=== PATIENT | male | born 1970 | race Caucasian/White ===

== ENCOUNTER 2023-11-09 23:56 | Emergency (ER) | payer BC, SELFPAY ==
[2023-11-09 23:56] VITALS: BMI 29.9
[2023-11-09 23:58] VITALS: BP 152/104
--- NOTE | 2023-11-10 00:51 | ED.GENMED ---
History of Present Illness
General
Chief Complaint: Abdominal Symptoms
Source: patient
Exam Limitations: none
Time Seen by Provider: 11/10/23 00:42
History of Present Illness
History of Present Illness:
This is a 53 year old male that comes in with c/o food poisoning. States that he eat at a restaurant in [place] and he thinks he had food poisoning. States that he had had food poisoning about 15 years ago. States that he started with vomiting for
the past few hours and abd cramping. Denies any diarrhea at this time. Denies any fever, chills, chest pain, SOB, diarrhea, headache, dizziness, urinary burning.
Past History
Past History
ED Past Medical History: Asthma, CAD, HTN, Hypercholesterolemia, [place], Psychiatric (Depression, ) and Other (HIV +, Cellulitis, PE/DVT, PNA, Hep B, Renal calculus, Ulcers)
ED Past Surgical History: Cardiac (Stents X 23 May 2016), Orthopedic (Right wrist surgery, Left foot surgery, Right below the knee amp, Left partial foot amp) and Other (Rhinoplasty )
Social History
Tobacco: Non-smoker
Alcohol: None
Drug: None
Personal:
Living: with family
Employment: Employed
Family History
Family History: Other (Noncontributory)
Review of Systems
Review of Systems
All Other Systems: ROS reviewed and negative except as documented in HPI and ROS
Constitutional: Reports no symptoms; Denies fever or chills
EENT: Reports no symptoms
Respiratory: Reports no symptoms; Denies cough or trouble breathing
Cardiac: Reports no symptoms; Denies chest pain
ABD/GI: Reports abdominal pain (Cramping), nausea and vomiting; Denies diarrhea
: Reports no symptoms; Denies dysuria, frequency or urgency
Musculoskeletal: Reports no symptoms
Skin: Reports no symptoms
Neurological: Reports no symptoms; Denies dizzy or headache
Psychiatric: Reports no symptoms
Phy Exam
General Physical Exam
General Presentation: no apparent distress
General age: appears stated age
General Skin: warm and dry
General Habitus: normal
General Mental: alert
General Hydration: appears well hydrated
ENT Exam
ENT Exam: TM's normal, pharynx normal and neck supple
Eye Exam
Eye Exam: EOMI
Cardiovascular Exam
Cardiovascular Exam: regular rate/rhythm, no edema, no murmur and normal peripheral pulses
Pulmonary Exam
Pulmonary Exam: lungs clear, no respiratory distress, no rales, chest non tender, no crackles, no rhonchi, no wheezing and no cough
Gastrointestinal Exam
Gastrointestinal Exam: normal bowel sounds, non tender, soft, no organomegaly, no pulsatile mass and non distended
Skin Exam
Skin Exam: normal color, warm/dry, no rash and no petechia
Psychiatric Exam
Psychiatric Exam: normal mood/affect
Course
Orders/Labs/Results
Orders:
Orders
11/10/23 00:51
0.9% Sodium Chloride 1000 ml [Nss] 1,000 ml IV BOLUS
Ondansetron Injectable [Zofran] 4 mg IV NOW STA
11/10/23 01:08
Complete Blood Count/With Diff Urgent
Comprehensive Metabolic Panel Urgent
11/10/23 02:09
Prochlorperazine [Compazine] 5 mg IV NOW STA
11/10/23 02:34
Prochlorperazine [Compazine] 5 mg IV NOW STA
Abnormal Lab Results
11/10/23
01:08
RBC 4.56 L 10^6/uL
(4.70-6.10)
Hgb 12.4 L g/dL
(13.0-18.0)
Hct 36.5 L %
(39.0-52.0)
RDW 15.6 H %
(11.5-14.5)
Eosinophils % 6.3 H %
(0-6)
Glucose 101 H mg/dl
(70-99)
11/10/23 01:08
11/10/23 01:08
Vital Signs
Initial and Last Documented VS:
Initial Vital Signs
Pulse Resp BP Pulse Ox
59 14 152/104 98
11/09/23 23:58 11/09/23 23:58 11/09/23 23:58 11/09/23 23:58
Last Documented Vital Signs
Pulse Resp BP Pulse Ox
59 14 128/76 95
11/09/23 23:58 11/09/23 23:58 11/10/23 01:14 11/10/23 01:45
MDM/Problems Addressed
Differential Diagnosis Includes:
Food poisoning. Nausea/vomiting
MDM/Problems Addressed:
This is a 53 year old male that comes in with c/o food poisoning. States that he started with vomiting a couple of hours ago. Denies any diarrhea.
Will give IV fluids and give Zofran
Back into see patient. Patient states that he just vomited again. Will further medicated and then recheck.
Patient continues to feel nauseated. Will repeat the Compazine and recheck pain. Abd assessed again and patient has not pain with palpation.
Back into see patient. States that he is feeling better. Has tolerated some oral fluids. Will sent prescription for Zofran to pharmacy. Patient to return with any concerns
Chronic conditions affecting care:
NA
Acute Exacerbation and/or Progression of Chronic Illness:
NA
*Pulse Oximetry
Patient hypoxic: no
*EKG
Interpreted by ED Provider?: NA
Rate: EKG- N/A
*Smelter Charger Interpretation
Rate: Smelter Charger- N/A
*Critical Care Note
Total Time (30-74mins, 75-104mins- exclusive of procedures): Not Applicable
ED Attending Note
-
Portions of this chart may have been created with voice recognition software.� Occasional wrong word or��sound alike� substitutions may have occurred due to the inherent limitations of voice recognition software.
Discharge Plan
Departure
Patient Disposition: Home (Routine Discharge)
Date of Disposition: 11/10/23
Time of Disposition: 03:00
Patient with high blood pressure during this ER visit?: No
Condition: Good
Covid-19: Not Applicable
Discharge Problem:
Nausea & vomiting
Instructions: Clear Liquid Diet, Nausea and Vomiting, Adult (DC)
Prescriptions:
New
ondansetron 4 mg tablet,disintegrating
4 mg PO Q8H PRN (Reason: nausea and vomiting) Qty: 7 0RF
No Action
atorvastatin 40 MG tablet
40 mg PO DAILY
albuterol sulfate [Proventil HFA] 90 MCG/PUFF HFA aerosol inhaler
1 puff inhalation PRN PRN (Reason: asthma)
Biktarvy 1 EACH tablet
1 ea PO DAILY
albuterol sulfate 2.5 MG/3 ML solution for nebulization
2.5 mg inhalation R Q4HPRN PRN (Reason: shortness of breath) 15 Days Qty: 30 0RF
amlodipine 2.5 MG tablet
2.5 mg PO DAILY Qty: 30 0RF
naloxone [Narcan] 4 mg/actuation spray,non-aerosol
4 mg intranasal Q2M PRN (Reason: opioid overdose) Qty: 2 0RF
warfarin 10 mg Tablet
10 mg PO DAILY
amoxicillin-pot clavulanate 875-125 mg tablet
1 tab PO BID Qty: 14 0RF
Referrals:
Keven Puente MD [Family Provider] - Call in 1-3 days for appt
Activity Restrictions/Additional Instructions:
As discussed, your blood work is normal. You have had a prescription for Zofran sent to your Pharmacy to help with the nausea/vomiting. . Please increase your water intake to 8-8oz glasses daily. Stay on a liquid diet tomorrow and advance your diet
as tolerated. Follow up with the family doctor for recheck. IF YOU HAVE VOMITING THAT HIS NOT CONTROLLED, ABD PAIN, OR YOU HAVE ANY OTHER CONCERNS PLEASE RETURN TO THE EMERGENCY ROOM.
Interventions
Interventions:
*Risk Screen - Suicide Last Done: 11/09/23 23:58
*General Assessment Last Done: 11/09/23 23:58
*Neglect/Abuse Screening Last Done: 11/09/23 23:58
CY-Wmmtry-Mynsyspjse Assessment Last Done: 11/10/23 01:17
Discharge Date and Time
Print Language: [place]
[2023-11-10] MEDS: ZOFRAN 4 MG IV (01:09)
[2023-11-10] MEDS: NSS 1000 IV (01:09)
[2023-11-10 01:14] VITALS: BP 128/76
[2023-11-10 01:18] LABS: % Basophils 0.5 % (0-2); % Eosinophils 6.3 % (0-6); % Immature Granulocytes 0.3 % (0-0.5); % Lymphocytes 34.6 % (20.5-51.1); % Monocytes 7.9 % (1.7-9.3); % Neutrophils 50.4 % (42.2-75.2); Absolute Eosinophils 0.4 10^3/uL (0-0.7); Absolute Monocytes 0.5 10^3/uL (0.1-0.6); Absolute Neutrophils 2.9 10^3/uL (1.4-6.5); Hematocrit 36.5 % (39.0-52.0); Hemoglobin 12.4 g/dL (13.0-18.0); Mean Corpuscular Hgb 27.2 pg (27.0-31.0); Mean Platelet Volume 9.8 fL (7.4-10.4); Nucleated Red Blood Cells % 0 % (-); Platelet Count 165 10^3/uL (130-400); Red Blood Cell Count 4.56 10^6/uL (4.70-6.10); Red Cell Dist. Width 15.6 % (11.5-14.5); White Blood Cell Count 5.7 10^3/uL (4.8-10.8)
[2023-11-10 01:44] LABS: ALT (SGPT) 27 U/L (0-50); AST (SGOT) 31 U/L (17-59); Albumin 4.3 g/dl (3.5-5.0); Alkaline Phosphatase 57 U/L (38-126); Blood Urea Nitrogen 18 mg/dl (9-20); Calcium 9.2 mg/dl (8.4-10.2); Carbon Dioxide 27 mmol/L (22-30); Chloride 107 mmol/L (98-107); Estimated Creatinine Clearance 108 ml/min; Glucose 101 mg/dl (70-99); Potassium 4.3 mmol/L (3.5-5.1); Sodium 142 mmol/L (135-145); Total Bilirubin 0.4 mg/dl (0.2-1.3); Total Protein 7.2 g/dl (6.3-8.2); eGFR > 60.00
[2023-11-10 02:00] VITALS: BP 131/73
[2023-11-10] MEDS: COMPAZINE 5 MG IV ×2 (02:17→02:42)
[2023-11-10 03:00] VITALS: BP 122/96
== END 2023-11-10 04:31 | disposition home or self-care (01) ==
LOC: EMR 23:56
PROVIDERS: Clinical Nurse Specialist Family Health; EMERGENCY PHYSICIAN Emergency Medicine; FAMILY PHYSICIAN Family Medicine
DX: R11.2 Nausea with vomiting, unspecified (principal); J45.909 Unspecified asthma, uncomplicated; I25.10 Atherosclerotic heart disease of native coronary artery without angina pectoris; I10 Essential (primary) hypertension; E78.00 Pure hypercholesterolemia, unspecified; I25.2 Old myocardial infarction; F32.A Depression, unspecified; Z86.19 Personal history of other infectious and parasitic diseases; Z21 Asymptomatic human immunodeficiency virus [HIV] infection status; Z86.718 Personal history of other venous thrombosis and embolism; Z87.442 Personal history of urinary calculi; Z95.5 Presence of coronary angioplasty implant and graft
CPT/HCPCS: 99283; 96374; 96375; 96376; 96361; 80053; 85025

== ENCOUNTER 2023-12-22 23:33 | Emergency (ER) | payer BC, SELFPAY ==
[2023-12-22 23:36] VITALS: BP 141/87
[2023-12-23] MEDS: TYLENOL 1000 MG PO (00:40)
[2023-12-23] MEDS: VIBRAMYCIN 100 MG PO (00:40)
--- NOTE | 2023-12-23 00:49 | ED.GENMED ---
History of Present Illness
General
Chief Complaint: Swelling
Source: patient
Exam Limitations: none
Time Seen by Provider: 12/23/23 00:16
Nursing documentation reviewed up to this point in time: agreed with
History of Present Illness
History of Present Illness:
53-year-old male with past medical history of PE currently on Coumadin also with history of HIV currently on Biktarvy aims that this is well-controlled at this point, CAD presenting to the emergency department today with concerns of swollen glands
and inflammation to the left armpit region over the past 2 days denies fevers or systemic symptoms.
Past History
Past History
ED Past Medical History: Asthma, CAD, HTN, Hypercholesterolemia, [place], Psychiatric (Depression, ) and Other (HIV +, Cellulitis, PE/DVT, PNA, Hep B, Renal calculus, Ulcers)
ED Past Surgical History: Cardiac (Stents X 23 May 2016), Orthopedic (Right wrist surgery, Left foot surgery, Right below the knee amp, Left partial foot amp) and Other (Rhinoplasty )
Social History
Tobacco: Non-smoker
Alcohol: None
Drug: None
Personal:
Living: with family
Employment: Employed
Family History
Family History: Other (Noncontributory)
Review of Systems
Review of Systems
Allergies reviewed?: Yes
All Other Systems: ROS reviewed and negative except as documented in HPI and ROS
Phy Exam
Physical Exam
Physical Exam:
GENERAL: Alert , in no apparent distress
EYE: pupils equal and reactive
NECK: Supple, no significant adenopathy.
ENT: o/p clr, mmm.
CARDIAC: Regular rate and rhythm .
LUNGS: Clear breath sounds bilaterally, no acute respiratory distress, no wheezes/rales/rhonchi
ABDOMEN: Soft, without focal tenderness, no r/g, no cvat
NEUROLOGICAL: Alert and oriented, no focal neuro deficits
SKIN: Left axilla region with area of redness and irritation appears mostly superficial some underlying swollen lymph nodes no deeper redness no fluctuance or induration warm and dry, skin intact.
MUSCULOSKELETAL: No edema, well perfused.
PSYCH: Normal and appropriate interaction.
Scores
Heart Failure Risk
Heart Failure Risk Score: Not Applicable
Course
Orders/Labs/Results
Orders:
Orders
12/23/23 00:32
Doxycycline [Vibramycin] 100 mg PO NOW STA
12/23/23 00:35
Acetaminophen [Tylenol] 1,000 mg PO NOW STA
12/23/23 00:43
PT/INR [Prothrombin Time] Urgent
Abnormal Lab Results
12/23/23
00:43
PT 32.0 H Sec
(11.4-14.6)
Vital Signs
Initial and Last Documented VS:
Initial Vital Signs
Pulse Resp BP Pulse Ox
62 20 141/87 99
12/22/23 23:36 12/22/23 23:36 12/22/23 23:36 12/22/23 23:36
Last Documented Vital Signs
Temp Pulse Resp BP Pulse Ox
98.4 F 62 20 141/87 99
12/23/23 01:00 12/22/23 23:36 12/22/23 23:36 12/22/23 23:36 12/22/23 23:36
MDM/Problems Addressed
MDM/Problems Addressed:
53-year-old male presenting to the emergency department today with concerns of UTI armpit. There is small superficial areas that look potential folliculitis with underlying swollen lymph nodes but no evidence of acute abscess. With antibiotic for
possibility of infection especially considering history of HIV that we claims this is very well-controlled. Patient stable throughout ER stay INR in therapeutic range. return precautions given.
*Critical Care Note
Total Time (30-74mins, 75-104mins- exclusive of procedures): Not Applicable
ED Attending Note
-
Portions of this chart may have been created with voice recognition software.� Occasional wrong word or��sound alike� substitutions may have occurred due to the inherent limitations of voice recognition software.
Discharge Plan
Departure
Patient Disposition: Home (Routine Discharge)
Date of Disposition: 12/23/23
Time of Disposition: 01:51
Patient with high blood pressure during this ER visit?: No
Condition: Good
Covid-19: Not Applicable
Discharge Problem:
Bacterial skin infection
Instructions: Cellulitis (Skin Infection), Adult ED
Prescriptions:
New
doxycycline hyclate 100 mg capsule
100 mg PO BID 7 Days Qty: 14 0RF
No Action
atorvastatin 40 MG tablet
40 mg PO DAILY
albuterol sulfate [Proventil HFA] 90 MCG/PUFF HFA aerosol inhaler
1 puff inhalation PRN PRN (Reason: asthma)
Biktarvy 1 EACH tablet
1 ea PO DAILY
albuterol sulfate 2.5 MG/3 ML solution for nebulization
2.5 mg inhalation R Q4HPRN PRN (Reason: shortness of breath) 15 Days Qty: 30 0RF
amlodipine 2.5 MG tablet
2.5 mg PO DAILY Qty: 30 0RF
naloxone [Narcan] 4 mg/actuation spray,non-aerosol
4 mg intranasal Q2M PRN (Reason: opioid overdose) Qty: 2 0RF
warfarin 10 mg Tablet
10 mg PO DAILY
amoxicillin-pot clavulanate 875-125 mg tablet
1 tab PO BID Qty: 14 0RF
ondansetron 4 mg tablet,disintegrating
4 mg PO Q8H PRN (Reason: nausea and vomiting) Qty: 7 0RF
Referrals:
Keven Puente MD [Family Provider] -
Activity Restrictions/Additional Instructions:
You came to the emergency department today with concerns of potential infection to your left armpit region. Please take doxycycline twice daily for the next 7 days and follow-up closely with your primary care doctor within the next week for
reassessment to ensure this is improving properly. Return to the emergency department for any worsening, new or concerning symptoms.
Interventions
Interventions:
*Risk Screen - Suicide Last Done: 12/22/23 23:36
*General Assessment Last Done: 12/22/23 23:36
*Neglect/Abuse Screening Last Done: 12/22/23 23:36
ED- Fall Risk Assessment Last Done: 12/22/23 23:36
*ED COVID-19 Vaccine History Last Done: 12/22/23 23:36
ED- Cardiac Assessment Last Done: 12/23/23 01:00
ED- Pulmonary Assessment Last Done: 12/23/23 01:00
ED-Skin Assessment Last Done: 12/23/23 01:00
Discharge Date and Time
Print Language: FRENCH
[2023-12-23 01:00] LABS: INR 3.12
[2023-12-23 01:59] VITALS: BP 135/79
== END 2023-12-23 02:03 | disposition home or self-care (01) ==
LOC: EMR 23:33
PROVIDERS: Physician Assistant; EMERGENCY PHYSICIAN Emergency Medicine; FAMILY PHYSICIAN Family Medicine
DX: L08.9 Local infection of the skin and subcutaneous tissue, unspecified (principal); B96.89 Other specified bacterial agents as the cause of diseases classified elsewhere; J45.909 Unspecified asthma, uncomplicated; I25.10 Atherosclerotic heart disease of native coronary artery without angina pectoris; I10 Essential (primary) hypertension; E78.00 Pure hypercholesterolemia, unspecified; Z21 Asymptomatic human immunodeficiency virus [HIV] infection status; Z86.711 Personal history of pulmonary embolism; Z86.718 Personal history of other venous thrombosis and embolism; Z87.442 Personal history of urinary calculi; Z95.5 Presence of coronary angioplasty implant and graft; Z79.01 Long term (current) use of anticoagulants
CPT/HCPCS: 99282; 85610

== ENCOUNTER 2024-02-01 14:39 | Emergency (ER) | payer BC, SELFPAY ==
[2024-02-01 14:45] VITALS: BP 163/89
--- NOTE | 2024-02-01 16:23 | ED.GENMED ---
History of Present Illness
General
Chief Complaint: Skin Problem
Source: patient
Time Seen by Provider: 02/01/24 16:09
History of Present Illness
History of Present Illness:
53yoM with a history of HIV and peripheral artery disease on Coumadin presenting for evaluation of a rash. Patient was seen in the ED on 12/23/2023 for a left axillary rash. He was discharged on doxycycline at that time. The rash resolved for a few
days but then recurred. He reports a migratory rash over the past several weeks. The rash is raised, red, and itchy. The rash is present in the groin, lower back, and axillary regions at times. He reports temporary improvement with Benadryl. He also
reports feeling under the weather the past few days with malaise and fatigue. No fevers. He denies any new medications or products. No exposure to similar rash. No groin or mucous membrane involvement. He reports that his HIV is well controlled.
Last viral load was reportedly low and his CD4 count was in the 400s a few months ago.
Past History
Past History
ED Past Medical History: Asthma, CAD, HTN, Hypercholesterolemia, [place], Psychiatric (Depression, ) and Other (HIV +, Cellulitis, PE/DVT, PNA, Hep B, Renal calculus, Ulcers)
ED Past Surgical History: Cardiac (Stents X 23 May 2016), Orthopedic (Right wrist surgery, Left foot surgery, Right below the knee amp, Left partial foot amp) and Other (Rhinoplasty )
Social History
Tobacco: Non-smoker
Alcohol: None
Drug: None
Personal:
Living: with family
Employment: Employed
Family History
Family History: Other (Noncontributory)
Phy Exam
General Physical Exam
General Presentation: well appearing and no apparent distress
General age: appears stated age
General Skin: warm and dry
General Habitus: normal
General Mental: alert
ENT Exam
ENT Exam: pharynx normal
Cardiovascular Exam
Cardiovascular Exam: regular rate/rhythm
Pulmonary Exam
Pulmonary Exam: lungs clear, no respiratory distress, no crackles and no wheezing
Venkata Coma Scale
Eye Opening: Spontaneous
Verbal Response: Oriented
Motor Response: Obeys Commands
GCS Total Score: 15
Skin Exam
Skin Exam: warm/dry and other (Scattered red raised circumscribed rash to the L inner thigh that appears to be fading. Blanchable. No sloughing or signs of infection. )
Psychiatric Exam
Psychiatric Exam: normal mood/affect
Course
Orders/Labs/Results
Orders:
Orders
02/01/24 16:55
COVID-19 Antigen Urgent
Source: Nasal Swab
Complete Blood Count/With Diff Urgent
Comprehensive Metabolic Panel Urgent
Prothrombin Time Urgent
Influenza A+B Rapid Molecular Urgent
PATRIC Source: Nasal Swab
Specimen Description:
02/01/24 17:57
Prednisone [Deltasone] 40 mg PO NOW STA
Abnormal Lab Results
02/01/24
16:55
WBC 4.2 L 10^3/uL
(4.8-10.8)
RBC 4.68 L 10^6/uL
(4.70-6.10)
RDW 14.6 H %
(11.5-14.5)
Absolute Lymphs (auto) 1.1 L 10^3/uL
(1.2-3.4)
PT 17.9 H Sec
(11.4-14.6)
Glucose 102 H mg/dl
(70-99)
02/01/24 16:55
02/01/24 16:55
Vital Signs
Initial and Last Documented VS:
Initial Vital Signs
Temp Pulse Resp BP Pulse Ox
98.3 F 98 20 163/89 98
02/01/24 14:45 02/01/24 14:45 02/01/24 14:45 02/01/24 14:45 02/01/24 14:45
Last Documented Vital Signs
Temp Pulse Resp BP Pulse Ox
98.3 F 79 18 111/61 96
02/01/24 14:45 02/01/24 18:53 02/01/24 18:53 02/01/24 17:53 02/01/24 18:53
MDM/Problems Addressed
Differential Diagnosis Includes:
53yoM here with a migratory itchy red rash x several weeks. Rash currently present to the L inner thigh. Improves with Benadryl. Hx of well controlled HIV. Patient is afebrile and hemodynamically stable. He is well-appearing in no acute distress.
There is a raised erythematous rash to the left inner thigh on exam which appears consistent with urticaria. No evidence of infection on exam. No mucous membrane involvement. Unclear trigger of urticaria. He denies any new products. Consider viral
illness given symptom of malaise.
Initial ED plan: Check CBC, CMP, INR, and COVID/flu swab.
*Critical Care Note
Total Time (30-74mins, 75-104mins- exclusive of procedures): Not Applicable
Update Note
Update Note:
INR subtherapeutic at 1.5. Patient notified of this and was advised to call his Coumadin clinic for instructions. Remainder of labs unremarkable. COVID/flu swab is negative. No indication for hospitalization. He was started on a course of
prednisone. He has a questionable allergy to prednisone in which he developed a rash 10 years ago after taking prednisone for a sore throat. First dose given in ED and he was monitored for 30-40 minutes without any adverse reactions. Advised f/u
with PCP and dermatology. ED return precautions discussed. He was discharged in stable condition.
ED Attending Note
-
Portions of this chart may have been created with voice recognition software.� Occasional wrong word or��sound alike� substitutions may have occurred due to the inherent limitations of voice recognition software.
Discharge Plan
Departure
Patient Disposition: Home (Routine Discharge)
Date of Disposition: 02/01/24
Time of Disposition: 17:52
Patient with high blood pressure during this ER visit?: Yes
Discharge Problem:
Urticaria
Instructions: Hives
Prescriptions:
New
prednisone 20 mg tablet
40 mg PO DAILY 4 Days Qty: 8 0RF
No Action
atorvastatin 40 MG tablet
40 mg PO DAILY
albuterol sulfate [Proventil HFA] 90 MCG/PUFF HFA aerosol inhaler
1 puff inhalation PRN PRN (Reason: asthma)
Biktarvy 1 EACH tablet
1 ea PO DAILY
albuterol sulfate 2.5 MG/3 ML solution for nebulization
2.5 mg inhalation R Q4HPRN PRN (Reason: shortness of breath) 15 Days Qty: 30 0RF
amlodipine 2.5 MG tablet
2.5 mg PO DAILY Qty: 30 0RF
naloxone [Narcan] 4 mg/actuation spray,non-aerosol
4 mg intranasal Q2M PRN (Reason: opioid overdose) Qty: 2 0RF
warfarin 10 mg Tablet
10 mg PO DAILY
amoxicillin-pot clavulanate 875-125 mg tablet
1 tab PO BID Qty: 14 0RF
ondansetron 4 mg tablet,disintegrating
4 mg PO Q8H PRN (Reason: nausea and vomiting) Qty: 7 0RF
doxycycline hyclate 100 mg capsule
100 mg PO BID 7 Days Qty: 14 0RF
Referrals:
Keven Puente MD [Family Provider] -
Chandrika Lo DO [Active] -
Activity Restrictions/Additional Instructions:
Take prednisone as prescribed. Take Benadryl 25mg every 6 hours as needed.
Please follow-up with your family doctor and dermatology. Return to the ER with any worsening symptoms.
Interventions
Interventions:
*Risk Screen - Suicide Last Done: 02/01/24 14:45
*General Assessment Last Done: 02/01/24 14:45
ED- Fall Risk Assessment Last Done: 02/01/24 17:37
*Nursing Disposition Last Done: 02/01/24 18:53
ED-Skin Assessment Last Done: 02/01/24 18:18
Discharge Date and Time
Discharge Date/Time: 02/01/24 18:54
Print Language: CHINESE
[2024-02-01 17:03] LABS: % Basophils 0.5 % (0-2); % Eosinophils 3.1 % (0-6); % Immature Granulocytes 0.2 % (0-0.5); % Lymphocytes 26.8 % (20.5-51.1); % Monocytes 7.4 % (1.7-9.3); Absolute Eosinophils 0.1 10^3/uL (0-0.7); Absolute Lymphocytes 1.1 10^3/uL (1.2-3.4); Absolute Monocytes 0.3 10^3/uL (0.1-0.6); Absolute Neutrophils 2.6 10^3/uL (1.4-6.5); Hematocrit 39.8 % (39.0-52.0); Hemoglobin 13.5 g/dL (13.0-18.0); Mean Corp Hgb Conc. 33.9 g/dL (33.0-37.0); Mean Corpuscular Hgb 28.8 pg (27.0-31.0); Mean Platelet Volume 9.3 fL (7.4-10.4); Nucleated Red Blood Cells % 0 % (-); Platelet Count 181 10^3/uL (130-400); Red Blood Cell Count 4.68 10^6/uL (4.70-6.10); Red Cell Dist. Width 14.6 % (11.5-14.5); White Blood Cell Count 4.2 10^3/uL (4.8-10.8)
[2024-02-01 17:13] LABS: INR 1.49; PT 17.9 Sec (11.4-14.6)
[2024-02-01 17:22] LABS: ALT (SGPT) 30 U/L (0-50); AST (SGOT) 35 U/L (17-59); Alkaline Phosphatase 56 U/L (38-126); Blood Urea Nitrogen 13 mg/dl (9-20); Carbon Dioxide 27 mmol/L (22-30); Chloride 101 mmol/L (98-107); Glucose 102 mg/dl (70-99); Sodium 139 mmol/L (135-145); Total Bilirubin 0.3 mg/dl (0.2-1.3); Total Protein 6.6 g/dl (6.3-8.2); eGFR > 60.00
[2024-02-01 17:35] LABS: COVID-19 Antigen Negative (Negative)
[2024-02-01 17:53] VITALS: BP 111/61
[2024-02-01] MEDS: DELTASONE 40 MG PO (18:03)
== END 2024-02-01 18:54 | disposition home or self-care (01) ==
LOC: EMR 14:39
PROVIDERS: Physician Assistant; EMERGENCY PHYSICIAN Emergency Medicine; FAMILY PHYSICIAN Family Medicine
DX: L50.9 Urticaria, unspecified (principal); E78.00 Pure hypercholesterolemia, unspecified; I10 Essential (primary) hypertension; I25.10 Atherosclerotic heart disease of native coronary artery without angina pectoris; I73.9 Peripheral vascular disease, unspecified; J45.909 Unspecified asthma, uncomplicated; Z21 Asymptomatic human immunodeficiency virus [HIV] infection status; Z79.01 Long term (current) use of anticoagulants; Z86.718 Personal history of other venous thrombosis and embolism; Z87.442 Personal history of urinary calculi; Z95.5 Presence of coronary angioplasty implant and graft; Z98.890 Other specified postprocedural states
CPT/HCPCS: 99283; 80053; 85025; 85610; 87502; 87811

== ENCOUNTER → 2024-07-11 11:59 | Outpatient (REF) | payer OTHER, SELFPAY | LOC: RAD 11:59 | PROVIDERS: ATTENDING PHYSICIAN Internal Medicine Infectious Disease | DX: M81.0 Age-related osteoporosis without current pathological fracture (principal); Z91.89 Other specified personal risk factors, not elsewhere classified | CPT/HCPCS: 77080 ==